=== PATIENT | female | born 1980 | race African-American/Black ===

== ENCOUNTER 2017-01-01 17:26 | Emergency (ER) | payer MEDICAID ==
[~2017-01-01] VITALS: Ht 162.6 cm; Wt 48.0 kg
[~2017-01-01 17:26] MED LIST: MULT-1116 PO
[2017-01-01] MEDS ORDERED: NIFE30TA94 PO (17:57)
[2017-01-01] MEDS ORDERED: FOLI-43 PO (17:57)
[2017-01-01] MEDS ORDERED: SERT25TA74 PO (17:57)
[2017-01-01] MEDS ORDERED: CYAN10009 PO (17:57)
[2017-01-01 19:58] LABS: BASOPHILS % 0.8 % (0.0-2.0); EOSINOPHILS % 0.7 % (0.0-5.0); HEMATOCRIT. 32.7 % (36.0-48.0); HEMOGLOBIN. 10.4 g/dL (12.0-16.0); MEAN CORPUSCULAR HEMOGLOBIN 28.5 pg (28.0-32.0); MEAN CORPUSCULAR VOLUME 89.6 fL (81.0-99.0); MEAN PLATELET VOLUME 8.4 fl (7.4-10.4); MONOCYTES % 7.2 % (2.0-8.0); NEUTROPHILS % 51.3 % (40.0-76.0); PLATELET 201 x1000/uL (130-400); RED BLOOD CELL COUNT 3.65 mill/uL (4.2-5.4); RED CELL DISTRIBUTION WIDTH 18.7 % (11.6-14.6)
[2017-01-01 19:59] LABS: INR 0.9; PROTHROMBIN TIME 9.9 sec (9.4-11.6)
[2017-01-01 20:08] LABS: CARBON DIOXIDE 28 mEq/L (21-32); CHLORIDE 101 mEq/L (98-107); TROPONIN I < 0.02 ng/mL (0.00-0.04)
[2017-01-01] MEDS ORDERED: LORAZEPAM 1MG TABLET PO ONE (22:45)
[2017-01-01] MEDS ORDERED: KETOROLAC 15MG/ML VIAL IM ONE (23:00)
[2017-01-02] MEDS ORDERED: LORAZEPAM 1MG TABLET PO ONE (00:45)
[2017-01-02 01:38] VITALS: BP 131/94
== END 2017-01-02 02:07 | disposition home or self-care (01) ==
LOC: ER 18:25
DX: S00.83XA Contusion of other part of head, initial encounter (principal); I10 Essential (primary) hypertension; F41.9 Anxiety disorder, unspecified; F10.239 Alcohol dependence with withdrawal, unspecified; D64.9 Anemia, unspecified; Y90.9 Presence of alcohol in blood, level not specified; W01.0XXA Fall on same level from slipping, tripping and stumbling without subsequent striking against object, initial encounter; Y93.89 Activity, other specified; Y92.018 Other place in single-family (private) house as the place of occurrence of the external cause
CPT/HCPCS: 36415; 70450; 71010; 80053; 81025; 83880; 84484; 85025; 85610; 93005; 96372; 99285; J1885; Z7610